=== PATIENT | male | born 1955 | race Caucasian/White ===

== ENCOUNTER 2019-05-07 07:29 | Emergency (ER) | payer OTHER, SELFPAY ==
[2019-05-07 07:57] VITALS: BP 132/73; PULSE 50; RESP 16; TEMP 37.1; O2SAT 98; BMI 26.6
--- NOTE | 2019-05-07 08:05 | ED.EYEPROB ---
HPI - Eye Problem General Chief complaint: Eye Problems Stated complaint: left eye irritation x1 day Time Seen by Provider: 05/07/19 08:02 Source: patient Mode of arrival: Family Vehicle Limitations: no limitations History of Present Illness HPI Narrative: 64-year-old male here for evaluation of irritation to his left eye. Patient wears glasses but no contacts. No prior history of eye surgeries. Yesterday was using a grinder operator automatic on metal. Was wearing safety glasses. The last evening and this morning had irritation to his left eye. Tried irrigated at home without any improvement. No vision changes. Does not know when his last tetanus shot was Related Data Home Medications Medication Instructions Recorded Confirmed lysine 500 mg PO #0 06/27/16 magnesium oxide 500 mg PO #0 06/27/16 Previous Rx's Medication Instructions Recorded finasteride 5 mg PO QDAY #90 tab 02/22/16 rizatriptan [Maxalt] 10 mg PO QDAYP PRN #12 tab 03/26/17 hydrocortisone [Proctozone-HC] 2.5 % DC BIDP PRN #2 gm 04/10/17 erythromycin 0.5 inch EYE-LEFT TID 3 Days #3.5 05/07/19 gram Allergies Allergy/AdvReac Type Severity Reaction Status Date / Time Sulfa (Sulfonamide Allergy Intermediate HIVES Verified 05/07/19 08:01 Antibiotics) amitriptyline AdvReac Mild GROGGINESS Verified 05/07/19 08:01 tamsulosin AdvReac Mild NASAL Verified 05/07/19 08:01 STUFFINESS topiramate AdvReac Mild MEMORY Verified 05/07/19 08:01 LOSS, CHANGES IN VISION, CONSTIPATION Review of Systems Constitutional Constitutional: Denies fever(s) Eyes Comments: Irritation foreign body sensation left eye Cardiovascular Cardiovascular: Denies chest pain and Denies dyspnea Respiratory Respiratory: Denies dyspnea Integumentary/Breasts Skin/Breast: Denies lesions and Denies rash Neurologic Neurologic: Denies behavioral changes Psychiatric Psychiatric: Denies behavioral changes Hematologic/Lymphatic Hematologic/Lymphatic: Denies easy bleeding and Denies easy bruising Patient History Medical/Surgical History Medical History History of migraine (02/11/16) Obstructive sleep apnea syndrome (02/11/16) Social History Smoking Status: Never smoker Family/Social History Social History Smoking Status: Never smoker alcohol intake frequency: a few times a month Substance Use Type: does not use Exam Initial Vital Signs Initial Vital Signs: Vital Signs Temperature 98.8 F 05/07/19 07:57 Pulse Rate 50 L 05/07/19 07:57 Respiratory Rate 16 05/07/19 07:57 Blood Pressure 132/73 05/07/19 07:57 Pulse Oximetry 98 05/07/19 07:57 Const General: cooperative and healthy appearing HENMA Head: normal to inspection Ears: hearing grossly normal bilaterally Nose: external nose normal Eyes Eyelids: eyelids normal Cornea: fluorescein used Pupils: PERRL EOM: EOM intact bilaterally Other: Right eye unremarkable. Left eye has no foreign body under the upper or lower eyelids. Does have what appears to be a foreign body at the 12 o'clock position superior right at the limbus. No abrasions noted on Wood's lamp exam. Slit lamp exam does show a rust ring at this position. Resp Effort & Inspection: normal respiratory effort Skin Lesions: no lesions Rashes: no rashes Neuro General: alert and awake Cognition: normal cognition Speech: speech normal Extrem General: normal to inspection and capillary refill normal Procedures Foreign Body EYE Time Out performed: Yes Location: eye (L) Topical anesthetic used: proparacaine Foreign body: metal Evidence of corneal penetration: No Technique: cotton tip swab and electric ese Procedure performed under: slit-lamp Post-procedure medication: ophthalmic antibiotic Patient tolerated procedure: well and no complications Course Orders Ordered: Discontinued Medications Diphtheria/Tetanus/Acell Pertussis (Adacel) 0.5 ml IM .ONCE ONE Stop: 05/07/19 08:37 Erythromycin (Erythromycin Ophth Oint) 1 applic EYE-LEFT NOW ONE Stop: 05/07/19 08:36 Proparacaine HCl (Parcaine 0.5% Ophth Wandy) 1 drops EYE-RIGHT NOW ONE Stop: 05/07/19 08:06 Last Admin: 05/07/19 08:08 Dose: 1 drop Documented by: DWAIN Vital Signs Vital signs: Vital Signs - 8 hr 05/07/19 07:57 Temperature 98.8 F Pulse Rate 50 L Respiratory Rate 16 Blood Pressure 132/73 Pulse Oximetry 98 MDM - Eye Problem MDM Narrative Medical decision making narrative: There is no foreign body noted. The rest ring was removed with the bur. His tetanus was updated. Antibiotic ointment prescribed. He was given return precautions and follow-up instructions Discharge Plan Departure Patient Disposition: Home Clinical Impression: Acute foreign body of left eye Qualifiers: Encounter type: initial encounter Qualified Code(s): T15.92XA - Foreign body on external eye, part unspecified, left eye, initial encounter Instructions: DI for Foreign Body in the Eye Activity Restrictions/Additional Instructions: Use the antibiotic as directed. Return to the emergency department for any new or worsening symptoms Prescriptions: New erythromycin 5 mg/gram (0.5 %) ointment 0.5 inch EYE-LEFT TID 3 Days Qty: 3.5 RF: 0 No Action finasteride 5 MG tablet 5 mg PO QDAY Qty: 90 RF: 1 magnesium oxide 500 MG tablet 500 mg PO Qty: 0 RF: 0 lysine 500 MG tablet 500 mg PO Qty: 0 RF: 0 rizatriptan [Maxalt] 10 MG tablet 10 mg PO QDAYP PRNQty: 12 RF: 0 hydrocortisone [Proctozone-HC] 2.5 % cream with perineal applicator 2.5 % DC BIDP PRNQty: 2 RF: 1 Referrals: Bob Mims MD [Primary Care Provider] -
[2019-05-07] MEDS: PROPARACAINE 0.5% OPHTH SOL 1 DROPS EYE-RIGHT (08:08)
[2019-05-07] MEDS: TET,DIPH,PERTUSS(ACELL),VAC/PF 0.5 ML SYRINGE IM (08:56)
[2019-05-07] MEDS: ERYTHROMYCIN OPHTH 1 GM OINT 1 APPLIC EYE-LEFT (08:56)
== END 2019-05-07 09:00 | disposition home or self-care (01) ==
PROVIDERS: Emergency Provider Emergency Medicine; Family Provider Family Medicine; PCP Family Medicine
DX: T15.92XA Foreign body on external eye, part unspecified, left eye, initial encounter (principal); Z23 Encounter for immunization
CPT/HCPCS: 90471; 99283; 90715

== ENCOUNTER → 2025-01-06 07:37 | Outpatient (CLI) | payer MEDICARE, OTHER, SELFPAY ==
--- NOTE | 2025-01-06 07:39 | DI.MRI.S_ITS ---
PROCEDURE: MR ANKLE LT WO CON INDICATIONS: left ankle pain, r/o fracture TECHNIQUE: Noncontrast sagittal T1 spin echo and T2 fast spin echo with fat saturation, axial proton density fast spin echo and T2 fast spin echo with fat saturation, coronal T1 spin echo and T2 fast spin echo with fat saturation through the ankle/hindfoot. COMPARISON: None. FINDINGS: Image quality: Excellent. Bones and joints: Diffuse soft tissue edema and swelling surrounding ankle joint is seen particularly over anterolateral aspect of tibiotalar joint. No discrete drainable fluid collection is seen. There is marrow edema involving medial periphery of distal talus without discrete fracture line. Mild midfoot and hindfoot joint osteoarthritic changes are seen. Osteochondral injuries involving lateral weight-bearing portion of talar dome are seen measures up to 2-3 mm in size with surrounding edema. Small to moderate amount of tibiotalar and subtalar joint effusion, no loose bodies. Well-defined plantar calcaneal enthesophyte is seen. Medial structures: The posterior tibialis, flexor digitorum longus, and flexor hallucis longus tendons are mildly thickened with small amount of fluid distending tendon sheath at the level of mid to distal talus and talonavicular joint. The posterior tibial neurovascular bundle appears normal within the tarsal tunnel, without extrinsic mass effect. The deltoid ligament and spring ligament are thickened with intrasubstance T2 hyperintense signal. Lateral structures: The anterior talofibular ligament is not visualized concerning for ruptured ATFL. The calcaneofibular, and posterior talofibular ligaments appear thickened. More superiorly, the anterior and posterior tibiofibular ligaments appear intact, as is the intermalleolar ligament. The tibiofibular syndesmosis is normal in width at 2 mm or less. The peroneus longus and brevis tendons are thickened with fluid distending peroneus tendon sheath at the level of lateral malleolus extending to the level of cuboid and metatarsal bases. The sinus tarsi demonstrates normal fatty signal, without edema, fibrosis, or cyst formation. Anterior structures: The tibialis anterior, extensor hallucis longus, and extensor digitorum longus tendons appear intact. The dorsal talonavicular ligament appears intact. Posterior and plantar structures: Thickened Achilles tendon approximately 2.4 cm from its insertion on posterior calcaneus is seen. No Achilles tendon rupture. Thickened medial band of plantar fascia at its plantar calcaneal insertion is also seen. No abductor digiti quinti muscle atrophy to suggest Levine neuropathy. IMPRESSION: 1. Finding is suggestive of ruptured ATFL with significant soft tissue edema and swelling over anterolateral aspect of ankle joint. Low-grade sprain involving posterior talofibular ligament and calcaneofibular ligament. Low-grade sprain/intrasubstance partial-thickness tear also seen involving medial ankle ligaments. 2. Mild midfoot and hindfoot joint osteoarthritis. Bony contusion involving anterior medial aspect of distal talus. Tiny 2-3 mm osteochondral injuries are seen in lateral weight-bearing portion of talar dome. No acute fracture or dislocation. Small to moderate joint effusion, no loose bodies. 3. Low-grade tenosynovitis involving flexor tendons at the level of distal talus and talonavicular joint. 4. Low to moderate grade tenosynovitis involving peroneus tendons at the level of lateral malleolus extending to the level of cuboid. 5. Mild distal Achilles tendinosis. No Achilles tendon rupture. 6. Well-defined plantar calcaneal enthesophyte with thickened medial band of plantar fascia suggestive of low-grade plantar fasciitis. Dictated by: Devin Kendrick M.D. on 01/07/2025 at 14:56 Approved by: Devin Kendrick M.D. on 01/07/2025 at 15:07
== END ==
LOC: MRI 07:39
PROVIDERS: Family Provider Family Medicine; PCP Family Medicine; Referring Provider Nurse Practitioner; Visit Provider Nurse Practitioner
DX: S92.102A Unspecified fracture of left talus, initial encounter for closed fracture (principal); S99.912A Unspecified injury of left ankle, initial encounter; M25.572 Pain in left ankle and joints of left foot; M79.89 Other specified soft tissue disorders; S93.492A Sprain of other ligament of left ankle, initial encounter; S93.412A Sprain of calcaneofibular ligament of left ankle, initial encounter; M19.072 Primary osteoarthritis, left ankle and foot; S90.02XA Contusion of left ankle, initial encounter; M65.972 Unspecified synovitis and tenosynovitis, left ankle and foot; M77.32 Calcaneal spur, left foot; X58.XXXA Exposure to other specified factors, initial encounter
CPT/HCPCS: 73721